=== PATIENT | female | born 1960 | race Caucasian/White ===

== ENCOUNTER → 2023-08-24 07:45 | Outpatient (BNVA) | payer OTHER, SELFPAY | PROVIDERS: Visit Provider Physician Assistant Surgical ==

== ENCOUNTER 2023-09-18 08:09 | Outpatient (AMB) | payer OTHER, SELFPAY ==
--- NOTE | 2023-09-18 11:19 | MHC.OFFVISWM ---
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 HPI Details Start time: 11.19am, End time: 12.04pm ?I spent 40 minutes speaking with the patient on the phone plus an additional 5 minutes reviewing and updating records for a total of 45 minutes HPI Comments History of Present Illness Details Previous weight loss efforts: Weight Watchers, Nutrisystem, Keto diet Wakes up: 5am, Sleeps: 8pm Breakfast: skips Lunch: 12pm (soups or eggs) Dinner: 5pm (chicken, fish, salad, pasta) Snacks: 6-7pm (ice cream) Exercise: none, has a treadmill Fluids: Coffee (1 cup/day, cappuccino with vanilla syrup), tea: occasionally, soda: none, juice: none, ETOH: rarely PFSH Medical History (Updated 09/18/23 @ 11:36 by David Shelton MD) DJD (degenerative joint disease) Hyperlipidemia Hypertension Stroke Surgical History (Updated 08/24/23 @ 08:46 by Emerald Suarez CMA) Hx of colonoscopy Hx of cholecystectomy Family History (Updated 08/24/23 @ 08:21 by Emerald Suarez CMA) Sister Skin cancer Father Skin cancer Maternal Grandmother Skin cancer Social History (Updated 08/24/23 @ 08:23 by Emerald Suarez CMA) Alcohol intake: current Alcohol intake frequency: holidays/special occasions only Alcohol type: wine and hard liquor Patient Tobacco Use Status: Former Tobacco user Quit Date: 20 yrs ago Current occupational status: employed 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 Plan for lap sleeve gastrectomy. If diaphragmatic or ventral hernias are present at time of surgery, these will be repaired laparoscopically as well. Risks and complications were discussed in detail including possible conversion to an open procedure, anastomotic leak, bleeding requiring transfusion, small bowel obstruction, , DVT and pulmonary embolism, cardiac, or pulmonary complications, as [facility] complications such as anastomotic ulcer, insufficient weight loss and vitamin deficiencies. I emphasized the importance of close follow-up, adherence to instructions and good communication. 2. Nutritional counseling. Start with 2 Isopure INFUSIONS protein (buy at [employer], [employer], [employer], [employer]) shakes (HALF scoop EACH in 8oz water) at 6am-8am and 9am-11am, 2 protein bars (Zone Perfect protein bars, buy at [employer], ?[employer], [employer], or [employer]) at 12pm-2pm and 3pm-5pm, dinner at 6pm (8 forks of protein and 8 forks of salad/vegetables). If hungry after dinner, you may have another HALF protein bar between 7pm-8pm. So you do 2 protein shakes, 2 to 2.5 protein bars and one meal per day. Meal to include lean meat (beef, fish, pork, turkey, chicken), or Frisian yogurt, or egg whites, or beans with a salad with olive oil and fruits (berries, pears, apples, kiwi). Avoid salt, breads, potatoes, rice, pasta, desserts. 3. Each shake would be drunk slowly, like coffee in a period of 2 hours. 4. Cut each bar in 4 pieces and eat each piece in 30min ?to make each bar last 2 hours. 5. I emphasized the importance of measuring accurately the food portion and measure it when serving the food in plate 6. The meal portions include 8 full-size forks of meat and 8 full-size forks of salad. You always eat the meat portion but you can replace up to 4 forks for salad/vegetables with rice, potatoes or pasta, or a fruit ?if you like. The less you do it the better weight loss will be. 7. One full-size fork is what it can be scooped on the fork without falling aside and not what can be bit with the fork. Use regular forks like those you find in a typical restaurant. 8.? Please send me weight measurements tomorrow Thursday and then weekly after that. 9. Start treadmill with an incline of 2.0 and speed of 2.0. Increase incline by 1 every 3 min to a max incline of 8.0, stay 3min at 8.0 and then return to 2.0 and repeat same steps until calorie goal is met. Goal is to burn 2000 calories per week on exercise, which means either 300 calories daily. You can also split the daily work-out to two workouts of 150 calories each, one in the morning and one in the afternoon for a total of 300 calories per day. 10. Goal is to lose at least 1.5-2lbs per week 11. Goal to lose 10% of your weight before surgery, which is about 22lbs. Ultimate weight goal: 200lbs before surgery 12. Please follow the diet plan exactly without any change. If you don't like something about the plan or you feel hungry you need to communicate with me so I can help you revise the plan. You should not change the plan yourself. Orders: Orders Complete Blood Count Auto Diff Today E66.9 - Obesity, unspecified, E78.5 - Hyperlipidemia, unspecified, I10 - Essential (primary) hypertension, I63.9 - Cerebral infarction, unspecified, Z68.38 - Body mass index [BMI] 38.0-38.9, adult Lipid Panel Today E66.9 - Obesity, unspecified, E78.5 - Hyperlipidemia, unspecified, I10 - Essential (primary) hypertension, I63.9 - Cerebral infarction, unspecified, Z68.38 - Body mass index [BMI] 38.0-38.9, adult Comprehensive Met. Panel Today E66.9 - Obesity, unspecified, E78.5 - Hyperlipidemia, unspecified, I10 - Essential (primary) hypertension, I63.9 - Cerebral infarction, unspecified, Z68.38 - Body mass index [BMI] 38.0-38.9, adult C Reactive Protein Today E66.9 - Obesity, unspecified, E78.5 - Hyperlipidemia, unspecified, I10 - Essential (primary) hypertension, I63.9 - Cerebral infarction, unspecified, Z68.38 - Body mass index [BMI] 38.0-38.9, adult TSH reflex Free T4 Today E66.9 - Obesity, unspecified, E78.5 - Hyperlipidemia, unspecified, I10 - Essential (primary) hypertension, I63.9 - Cerebral infarction, unspecified, Z68.38 - Body mass index [BMI] 38.0-38.9, adult Ferritin Today E66.9 - Obesity, unspecified, E78.5 - Hyperlipidemia, unspecified, I10 - Essential (primary) hypertension, I63.9 - Cerebral infarction, unspecified, Z68.38 - Body mass index [BMI] 38.0-38.9, adult Vitamin D 25-OH Total Today E66.9 - Obesity, unspecified, E78.5 - Hyperlipidemia, unspecified, I10 - Essential (primary) hypertension, I63.9 - Cerebral infarction, unspecified, Z68.38 - Body mass index [BMI] 38.0-38.9, adult XR chest 2V Today E66.9 - Obesity, unspecified, E78.5 - Hyperlipidemia, unspecified, I10 - Essential (primary) hypertension, I63.9 - Cerebral infarction, unspecified, Z68.38 - Body mass index [BMI] 38.0-38.9, adult Insulin Today E66.9 - Obesity, unspecified, E78.5 - Hyperlipidemia, unspecified, I10 - Essential (primary) hypertension, I63.9 - Cerebral infarction, unspecified, Z68.38 - Body mass index [BMI] 38.0-38.9, adult Hemoglobin A1c Today E66.9 - Obesity, unspecified, E78.5 - Hyperlipidemia, unspecified, I10 - Essential (primary) hypertension, I63.9 - Cerebral infarction, unspecified, Z68.38 - Body mass index [BMI] 38.0-38.9, adult H Pylori Breath Test Today E66.9 - Obesity, unspecified, E78.5 - Hyperlipidemia, unspecified, I10 - Essential (primary) hypertension, I63.9 - Cerebral infarction, unspecified, Z68.38 - Body mass index [BMI] 38.0-38.9, adult IRON PROFILE Today E66.9 - Obesity, unspecified, E78.5 - Hyperlipidemia, unspecified, I10 - Essential (primary) hypertension, I63.9 - Cerebral infarction, unspecified, Z68.38 - Body mass index [BMI] 38.0-38.9, adult Vitamin B12 and Folate Today E66.9 - Obesity, unspecified, E78.5 - Hyperlipidemia, unspecified, I10 - Essential (primary) hypertension, I63.9 - Cerebral infarction, unspecified, Z68.38 - Body mass index [BMI] 38.0-38.9, adult Zinc Today E66.9 - Obesity, unspecified, E78.5 - Hyperlipidemia, unspecified, I10 - Essential (primary) hypertension, I63.9 - Cerebral infarction, unspecified, Z68.38 - Body mass index [BMI] 38.0-38.9, adult Vitamin B1 Today E66.9 - Obesity, unspecified, E78.5 - Hyperlipidemia, unspecified, I10 - Essential (primary) hypertension, I63.9 - Cerebral infarction, unspecified, Z68.38 - Body mass index [BMI] 38.0-38.9, adult Vitamin A Today E66.9 - Obesity, unspecified, E78.5 - Hyperlipidemia, unspecified, I10 - Essential (primary) hypertension, I63.9 - Cerebral infarction, unspecified, Z68.38 - Body mass index [BMI] 38.0-38.9, adult US abdomen comp w elastography Today E66.9 - Obesity, unspecified, E78.5 - Hyperlipidemia, unspecified, I10 - Essential (primary) hypertension, I63.9 - Cerebral infarction, unspecified, Z68.38 - Body mass index [BMI] 38.0-38.9, adult ECG 12 lead EKG Today E66.9 - Obesity, unspecified, E78.5 - Hyperlipidemia, unspecified, I10 - Essential (primary) hypertension, I63.9 - Cerebral infarction, unspecified, Z68.38 - Body mass index [BMI] 38.0-38.9, adult FL upper GI w air Today E66.9 - Obesity, unspecified, E78.5 - Hyperlipidemia, unspecified, I10 - Essential (primary) hypertension, I63.9 - Cerebral infarction, unspecified, Z68.38 - Body mass index [BMI] 38.0-38.9, adult Referrals Nutrition/Dietitian Referral E66.9 - Obesity, unspecified, E78.5 - Hyperlipidemia, unspecified, I10 - Essential (primary) hypertension, I63.9 - Cerebral infarction, unspecified, Z68.38 - Body mass index [BMI] 38.0-38.9, adult Behavioral Health Referral E66.9 - Obesity, unspecified, E78.5 - Hyperlipidemia, unspecified, I10 - Essential (primary) hypertension, I63.9 - Cerebral infarction, unspecified, Z68.38 - Body mass index [BMI] 38.0-38.9, adult Telehealth Telehealth Location of provider rendering services: practice address Location of patient: address on file Patient Identification confirmed using: Name, : Yes Telehealth method: voice only Patient verbally consented to treatment: Yes Patient verbally consented to billing insurance company: Yes Patient informed of any privacy concerns related to visit: Yes Minutes spent on Phone/Video with Pt.: 45 Coding Level of Care Code Tele [facility] Pt Level 4 (42998) Diagnoses Class 2 severe obesity due to excess calories with serious comorbidity and body mass index (BMI) of 38.0 to 38.9 in adult E66.01; Z68.38 Body mass index: BMI 38.0-38.9 Obesity classification: adult class 2 (BMI 35 - 39.9) Obesity type: due to excess calories Serious obesity comorbidity presence: with serious comorbidity Time Spent (min) 45
== END 2023-09-18 12:06 | disposition home or self-care (01) ==
LOC: HO.HBS 08:09
PROVIDERS: Visit Provider Surgery
DX: E66.01 Morbid (severe) obesity due to excess calories (principal); Z68.38 Body mass index [BMI] 38.0-38.9, adult
CPT/HCPCS: 99204

== ENCOUNTER → 2023-09-18 08:09 | Outpatient (BNVA) | payer OTHER, SELFPAY | PROVIDERS: Visit Provider Surgery ==

== ENCOUNTER 2023-10-01 08:56 | Outpatient (REF) | payer OTHER, SELFPAY ==
[2023-10-01 09:20] LABS: MANUAL DIFF FLAG NO
[2023-10-01 09:39] LABS: Basophils Percent Auto 0.3 % (0-2); Eosinophils Absolute Auto 0.1 X10*3/uL (0.0-0.4); Eosinophils Percent Auto 1.9 % (0-4); Hematocrit 40.7 % (37.0-47.0); Hemoglobin 13.8 g/dl (12.0-16.0); Imm Gran Abs Auto 0.02 X10*3/uL (0.00-0.03); Imm Gran Pct Auto 0.3 % (0.0-0.4); Lymphocytes Absolute Auto 2.2 X10*3/uL (1.2-4.9); Lymphocytes Percent Auto 37.9 % (20-40); Mean Corpuscular HGB Conc 33.9 g/dl (31.0-35.0); Mean Corpuscular Hemoglobin 30.4 pg (27.0-33.0); Mean Corpuscular Volume 89.6 fL (80.0-98.0); Mean Platelet Volume 10.7 fL (9.4-12.3); Monocytes Absolute Auto 0.5 X10*3/uL (0.1-1.2); Monocytes Percent Auto 8.2 % (2-11); Neutrophils Absolute Auto 2.9 x10*3/uL (2.0-8.3); Neutrophils Percent Auto 51.4 % (45-73); Platelet Count 248 X10*3/uL (160-400); Red Blood Count 4.54 X10*6/uL (4.20-5.50); Red Cell Distribution Width 13.6 % (11.0-16.0); White Blood Count 5.7 X10*3/uL (4.8-10.8)
[2023-10-01 09:45] LABS: Estimated Average Glucose 120 mg/dL; Hemoglobin A1c % 5.8 % (<6.0)
[2023-10-01 10:14] LABS: Alanine Aminotransferase 75 U/L (0-31); Albumin Level 4.1 g/dL (3.5-5.0); Alkaline Phosphatase 42 U/L (39-117); Anion Gap 13 (12-20); Aspartate Amino Transferase 40 U/L (5-31); Bilirubin Total 0.7 mg/dL (0.0-1.0); Blood Urea Nitrogen 16 mg/dL (9-16); C Reactive Protein 0.26 mg/dL (< or = 0.50); Calcium 9.3 mg/dL (8.4-10.2); Carbon Dioxide 27 mmol/L (22-29); Chloride 109 mmol/L (96-108); Cholesterol 200 mg/dL (<200); Estimated Glomerular Filt Rate > 60; Glucose Random 97 mg/dL (60-115); HDL Cholesterol 59 mg/dL (>40); Iron 67 mcg/dL (30-160); LDL Cholesterol Calculated 117 mg/dL (<100); Percent Iron Saturation 23 % (15-50); Potassium 4.2 mmol/L (3.3-5.1); Sodium 145 mmol/L (135-145); Total Iron Binding Capacity 294 mcg/dL (228-428); Triglycerides 122 mg/dL (<150); Unsaturated Iron Binding 227 ug/dL
[2023-10-01 10:35] LABS: Ferritin 365 ng/mL (10-250); Insulin 16 uU/mL (2-29); Vitamin D 25-OH Total 30.9 ng/mL (>30)
[2023-10-01 10:48] LABS: Vitamin B12 644 pg/mL (200-900)
[2023-10-04 18:24] LABS: Zinc 69 mcg/dL (60-130)
[2023-10-06 16:44] LABS: Vitamin B1 22 nmol/L (8-30)
[2023-10-07 08:18] LABS: Vitamin A 58 mcg/dL (38-98)
== END 2023-10-01 08:57 | disposition home or self-care (01) ==
LOC: HO.LAB 08:56
PROVIDERS: PCP Physician Assistant Medical; Visit Provider Surgery
DX: E66.9 Obesity, unspecified (principal); Z68.38 Body mass index [BMI] 38.0-38.9, adult; I10 Essential (primary) hypertension; E78.5 Hyperlipidemia, unspecified; I63.9 Cerebral infarction, unspecified
CPT/HCPCS: 36415; 80053; 80061; 82306; 82607; 82728; 82746; 83036; 83525; 83540; 84425; 84443; 84590; 84630; 85025; 86140

== ENCOUNTER 2023-10-09 08:14 | Outpatient (AMB) | payer OTHER, SELFPAY ==
--- NOTE | 2023-10-09 08:14 | A.OFFVIS_ITS ---
Intake VS Expanded 10/09/23 08:25 Height 5 ft 4 in Weight 224 lb 2 oz BMI 38.5 Body Fat % 51.3 Body Fat Mass 115 Fat Free Mass 109.1 Visceral Fat Rating 19 Body Water % 33.3 Body Water Mass 74.6 Basal Metabolic Rate/Score 1,653 Intake Visit Reasons: TV Follow Up SWL - 1ST Allergies Penicillins Allergy (Mild, Verified 09/18/23 11:19) Hives HPI TV Follow Up SWL - 1ST HPI Details Start time: 8.12am, End time: 8.32am ?I spent 15 minutes speaking with the patient on the phone plus an additional 5 minutes reviewing and updating records for a total of 20 minutes HPI Comments History of Present Illness Details Is doing 2 Isopure Infusions protein shakes (1/2 scoop each in water), 2 [employer] Perfect protein bars and one meal (8 forks of protein and 8 forks of salad or vegetables) Exercise: is doing treadmill for 150-200 calories x3-4/week PFSH Medical History (Updated 09/18/23 @ 11:36 by David Shelton MD) DJD (degenerative joint disease) Hyperlipidemia Hypertension Stroke Surgical History (Updated 08/24/23 @ 08:46 by Emerald Suarez CMA) Hx of colonoscopy Hx of cholecystectomy Family History (Updated 08/24/23 @ 08:21 by Emerald Suarez CMA) Sister Skin cancer Father Skin cancer Maternal Grandmother Skin cancer Social History (Updated 08/24/23 @ 08:23 by Emerald Suarez CMA) Alcohol intake: current Alcohol intake frequency: holidays/special occasions only Alcohol type: wine and hard liquor Patient Tobacco Use Status: Former Tobacco user Quit Date: 20 yrs ago Current occupational status: employed 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 Continue same nutritional plan of 2 Isopure Infusions protein shakes (1/2 scoop each in water), 2 Zone Perfect protein bars and one meal (8 forks of protein and 8 forks of salad or vegetables). 2. If you feel hungry during or after dinner, do another half protein bar and avoid eating extra food 3. Exercise: change treadmill to incline of zero and speed of 3.0. Increase speed by 0.5 every 3 minutes to a max speed of 5.0. Stay at speed 5.0 for 3 minutes and then return to speed 3.0 and repeat cycles until 300 calories are burned. The goal is to burn 2000 calories per week on the treadmill. Try to do 100 calories the days you work 12 hour shifts and 400 calories the other days 4. Continue to send me weight measurements weekly on Saturdays Telehealth Telehealth Location of provider rendering services: practice address Location of patient: address on file Patient Identification confirmed using: Name, : Yes Telehealth method: voice only Patient verbally consented to treatment: Yes Patient verbally consented to billing insurance company: Yes Patient informed of any privacy concerns related to visit: Yes Minutes spent on Phone/Video with Pt.: 20 Coding Level of Care Code Tele Est Pt Level 3 (21148) Diagnoses Class 2 severe obesity due to excess calories with serious comorbidity and body mass index (BMI) of 38.0 to 38.9 in adult E66.01; Z68.38 Obesity type: due to excess calories Obesity classification: adult class 2 (BMI 35 - 39.9) Serious obesity comorbidity presence: with serious comorbidity Body mass index: BMI 38.0-38.9 Time Spent (min) 20
[2023-10-09 08:25] VITALS: BMI 38.5
== END 2023-10-09 08:32 | disposition home or self-care (01) ==
LOC: HO.HBS 08:15
PROVIDERS: PCP Physician Assistant Medical; Visit Provider Surgery
DX: E66.01 Morbid (severe) obesity due to excess calories (principal); Z68.38 Body mass index [BMI] 38.0-38.9, adult
CPT/HCPCS: 99213

== ENCOUNTER → 2023-10-09 08:14 | Outpatient (BNVA) | payer OTHER, SELFPAY | PROVIDERS: PCP Physician Assistant Medical; Visit Provider Surgery ==

== ENCOUNTER 2023-10-14 09:48 | Outpatient (AMB) | payer OTHER, SELFPAY ==
--- NOTE | 2023-10-14 08:33 | MHC.AMNUTRGE ---
Intake Intake Visit Reasons: VIDEO Initial Nutrition SWL Allergies Penicillins Allergy (Mild, Verified 09/18/23 11:19) Hives HPI Nutrition Presentation Reason for consult elevated BMI Diet Assmnt Details this plan is very very strict - she reports trying her best to follow surgeons nutrition plan. Is really struggling with overeating at meals . Exercise: isn't able to do the incline and the speed or timeframe given feels like it is too much too quickly. [facility] online classes: none , was never enrolled. I assisted her with this today Previous weight loss methods attempted WW, multiple fad diets Dietary counseling reduction Lifestyle Food frequency Fruit: never, Vegetables: never, Grains/pasta/breads/cereal (carbs): daily, Meats/poultry/fish (protein): daily, Meat substitutes/nuts/seeds/legumes: daily, Desserts/sweets: daily and Water: daily Diagnosis Nutrition problem #1 overweight/obesity As related to (etiology) #1 excess energy intake and physical inactivity As evidenced by (sign/symptom) #1 high BMI Monitoring/Goals Nutrition problem monitoring total energy intake, level of knowledge/skill, total PRO intake, total CHO intake and weight Outcome progress progressing Learning/Education Readiness to learn excellent Stages of change action Educational materials provided Yes Most Recent Diabetes Results: Cholesterol 200 mg/dL (<200) H 10/01/23 HDL Cholesterol 59 mg/dL (>40) 10/01/23 Triglycerides 122 mg/dL (<150) 10/01/23 Creatinine 0.73 mg/dL (0.5-1.4) 10/01/23 Blood Urea Nitrogen 16 mg/dL (9-16) 10/01/23 Sodium 145 mmol/L (135-145) 10/01/23 Potassium 4.2 mmol/L (3.3-5.1) 10/01/23 Chloride 109 mmol/L (96-108) H 10/01/23 Carbon Dioxide 27 mmol/L (22-29) 10/01/23 Calcium 9.3 mg/dL (8.4-10.2) 10/01/23 AST 40 U/L (5-31) H 10/01/23 ALT 75 U/L (0-31) H 10/01/23 Total Protein 7.0 g/dL (6.5-8.0) 02/29/24 Albumin 4.1 g/dL (3.5-5.0) 10/01/23 PFSH Medical History (Updated 09/18/23 @ 11:36 by David Shelton MD) DJD (degenerative joint disease) Hyperlipidemia Hypertension Stroke Surgical History (Updated 08/24/23 @ 08:46 by Emerald Suarez CMA) Hx of colonoscopy Hx of cholecystectomy Family History (Updated 08/24/23 @ 08:21 by Emerald Suarez CMA) Sister Skin cancer Father Skin cancer Maternal Grandmother Skin cancer Social History (Updated 08/24/23 @ 08:23 by Emerald Suarez CMA) Alcohol intake: current Alcohol intake frequency: holidays/special occasions only Alcohol type: wine and hard liquor Patient Tobacco Use Status: Former Tobacco user Quit Date: 20 yrs ago Current occupational status: employed 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 Will complete online classes. Continue f/u with surgeon Telehealth Telehealth Location of provider rendering services: practice address Location of patient: address on file Patient Identification confirmed using: Name, : Yes Telehealth method: voice only Patient verbally consented to treatment: Yes Patient verbally consented to billing insurance company: Yes Patient informed of any privacy concerns related to visit: Yes Minutes spent on Phone/Video with Pt.: 25 Coding Level of Care Code Nutr Indiv Intake (31205) Diagnoses Obesity (BMI 30-39.9) E66.9 Time Spent (min) 25
== END 2023-10-14 10:21 | disposition home or self-care (01) ==
LOC: HO.HBS 09:49
PROVIDERS: PCP Physician Assistant Medical; Visit Provider Dietitian, Registered
DX: E66.9 Obesity, unspecified (principal)

== ENCOUNTER → 2023-10-14 09:48 | Outpatient (BNVA) | payer OTHER, SELFPAY | PROVIDERS: PCP Physician Assistant Medical; Visit Provider Dietitian, Registered | DX: E66.9 Obesity, unspecified (principal); Z71.3 Dietary counseling and surveillance | CPT/HCPCS: 97802 ==

== ENCOUNTER 2023-10-16 07:35 | Outpatient (REF) | payer OTHER, SELFPAY ==
--- NOTE | ~2023-10-16 | XR_ITS ---
EXAMINATION: XR CHEST CLINICAL INFORMATION: Obesity unspecified. COMPARISON: None available. TECHNIQUE: 2 views of the chest were obtained. FINDINGS: Mild degenerative changes in the thoracic spine. The lung volumes are low. Cardiac silhouette within normal limits in size, although evaluation is limited due to low lung volumes. Bibasilar patchy opacities, left greater than right, may represent atelectasis, although an inflammatory/infectious process should also be considered. Trace blunting of the left costophrenic angle may represent trace pleural effusion versus pleural thickening. XR/XR chest 2V IMPRESSION: 1. Bibasilar patchy opacities, left greater than right, may represent atelectasis, although an inflammatory/infectious process should also be considered. 2. Trace blunting of the left costophrenic angle may represent trace pleural effusion versus pleural thickening. 3. Recommend follow up imaging in 4-6 weeks to confirm resolution and exclude underlying pathology. This study was presented today, 10/20/2023, for interpretation. PSA staff will provide results to referring provider at this time.
--- NOTE | ~2023-10-16 | US_ITS ---
EXAMINATION: US COMPLETE ABDOMEN WITH LIVER ELASTOGRAPHY CLINICAL INFORMATION: Obesity. COMPARISON: None available. TECHNIQUE: Real-time imaging of the abdominal viscera. Noninvasive ultrasound liver fibrosis assessment is performed using [employer] ElastPQ point quantification shear wave elastography (2D-SWE) with a C5-2 MHz transducer. Multiple elastography samples are obtained. FINDINGS: PANCREAS: Normal. ABDOMINAL AORTA: The proximal, middle, and distal aortic segments are normal in caliber. INFERIOR VENA CAVA: Visualized portions are normal. LIVER: Liver has normal size and contour. The parenchyma is diffusely hyperechoic. No evidence of focal lesion or intrahepatic duct dilatation. The right lobe measures 12.6 cm in length. The left lobe measures 11.1 cm in length. Portal flow is normal. Shear wave liver elastography median stiffness is 1.3 m/s (reference: normal median stiffness is 1.3 m/s or less). IQR/median stiffness to assess sampling precision is 0.05 (reference: good quality data set is IQR/median stiffness of 0.15 or less). GALLBLADDER: Surgically absent. COMMON BILE DUCT: Normal in caliber measuring 0.7 cm in diameter. RIGHT KIDNEY: Normal. No hydronephrosis. No renal calculi or focal parenchymal lesions. The kidney measures 10.6 cm in maximum dimension. LEFT KIDNEY: Normal. No hydronephrosis. No renal calculi or focal parenchymal lesions. The kidney measures 11.8 cm in maximum dimension. SPLEEN: Normal. The spleen measures 8.5 cm in maximum dimension. FREE FLUID: None. US/US abdomen comp w elastography IMPRESSION: * Liver is diffusely hyperechoic. The imaging findings are consistent with hepatic steatosis. * Shear wave liver elastography reveals a median stiffness of 1.3 m/s (reference: normal median stiffness is 1.3 m/s or less). Therefore, there is no evidence of fibrosis. REFERENCE: Society of Radiologists in Ultrasound Liver Stiffness Thresholds (2020): LIVER STIFFNESS THRESHOLDS: *Liver Stiffness equal or less than 1.3 m/s: High probability of being normal. *Liver Stiffness less than 1.7 m/s: In the absence of other known clinical signs, rules out compensated advanced chronic liver disease. *Liver Stiffness 1.7-2.1 m/s: Suggestive of compensated advanced chronic liver disease but need further test for confirmation. *Liver Stiffness over 2.1 m/s: Rules in compensated advanced chronic liver disease. *Liver Stiffness over 2.4 m/s: Suggestive of clinically significant portal hypertension. QUALITY OF DATA SET: *IQR/Median value equal or less than 0.15 implies a quality data set. *IQR/Median value over 0.15 implies a poor quality data set. OTHER CONSIDERATIONS: The stage of liver fibrosis may be overestimated in the setting of acute hepatitis, liver inflammation, elevated liver function tests, hepatic vascular congestion, obstructive cholestasis, non-fasting state, and infiltrative diseases such as amyloidosis and lymphoma. In some patients with NAFLD, the liver stiffness thresholds for compensated advanced chronic liver disease may be lower. In causes other than viral hepatitis and NAFLD, liver stiffness thresholds are not well established.
--- NOTE | 2023-10-16 08:23 | ECG_ITS ---
Test Reason : OBESITY Blood Pressure : / mmHG Vent. Rate : 071 BPM Atrial Rate : 071 BPM P-R Int : 142 ms QRS Dur : 072 ms QT Int : 402 ms P-R-T Axes : -12 -07 001 degrees QTc Int : 436 ms Normal sinus rhythm Minimal voltage criteria for LVH, may be normal variant ( R in aVL ) Borderline ECG No previous ECGs available Referred By: David Shelton Electronically Signed By:CHASIDY GOLD MD
== END 2023-10-16 07:36 | disposition home or self-care (01) ==
LOC: HO.US 07:35
PROVIDERS: PCP Physician Assistant Medical; Visit Provider Surgery
DX: I63.9 Cerebral infarction, unspecified (principal); I10 Essential (primary) hypertension; E66.9 Obesity, unspecified; Z68.38 Body mass index [BMI] 38.0-38.9, adult; E78.5 Hyperlipidemia, unspecified
CPT/HCPCS: 71046; 76700; 76981; 93005; 99211

== ENCOUNTER → 2023-10-16 08:23 | Outpatient (BNV) | payer OTHER, SELFPAY | PROVIDERS: PCP Physician Assistant Medical; Visit Provider Internal Medicine Cardiovascular Disease | DX: E66.9 Obesity, unspecified (principal); Z68.38 Body mass index [BMI] 38.0-38.9, adult | CPT/HCPCS: 93010 ==

== ENCOUNTER 2023-10-16 14:31 | Outpatient (REF) | payer OTHER, SELFPAY ==
[2023-10-18 14:29] LABS: H Pylori Breath Test Negative (Negative)
== END 2023-10-16 14:32 | disposition home or self-care (01) ==
LOC: HO.LNP 14:31
PROVIDERS: Visit Provider Surgery
DX: E66.9 Obesity, unspecified (principal); Z68.38 Body mass index [BMI] 38.0-38.9, adult; E78.5 Hyperlipidemia, unspecified
CPT/HCPCS: 83013

== ENCOUNTER 2023-11-11 12:39 | Outpatient (AMB) | payer OTHER, SELFPAY ==
--- NOTE | 2023-11-11 12:35 | A.OFFWM_ITS ---
Intake Intake Visit Reasons: (TV) BH Intake Allergies Penicillins Allergy (Mild, Verified 09/18/23 11:19) Hives PFSH Medical History (Updated 11/11/23 @ 13:00 by Tatyana Guardado) DJD (degenerative joint disease) Hyperlipidemia Hypertension Stroke Surgical History (Updated 08/24/23 @ 08:46 by Emerald Suarez CMA) Hx of colonoscopy Hx of cholecystectomy Family History (Updated 08/24/23 @ 08:21 by Emerald Suarez CMA) Sister Skin cancer Father Skin cancer Maternal Grandmother Skin cancer Social History (Updated 08/24/23 @ 08:23 by Emerald Suarez CMA) Alcohol intake: current Alcohol intake frequency: holidays/special occasions only Alcohol type: wine and hard liquor Patient Tobacco Use Status: Former Tobacco user Quit Date: 20 yrs ago Current occupational status: employed 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 She reported some history of depression and being on medication in the past due to bad relationship. No history of problems with drugs or alcohol. Pt is currently not in therapy. Presenting Concerns Referral Source provider Reason for referral weight loss surgery evaluation Precipitating Event obesity Living Situation Current Living Situation Own At risk of losing current housing? No Satisfied with current living situation? Yes Comments Patient lives with her partner and her son, daughter in law and grandchildren live upstairs. Food/Weight/Diet Expectations of change weight loss and maintenance History/Relationship with food overeating, stress eating, feeling guilt and shame in regards to food. She would snack at night after dinner while watching TV History/Relationship with weight She reported always being vuluptuos/curvy one . History/Relationship with dieting yo-yo dieter most of her life. [facility], [facility], lost 40lbs last year. Binge Eating Do you frequently eat large amounts of food in short periods of time, not feeling physically hungry? Yes Do you feel out of control when you eat a large amount of food in a short period of time? Yes Do you eat large amounts of food rapidly and typically alone? Yes Night Eating Do you wake up at least once during the night to eat? No If you wake up in the night, do you find that it is necessary to eat something in order to fall back asleep? No Do you have little or no appetite in the morning and feel very hungry in the evening, often overeating between dinner and when you go to bed? No Social History Family history and relationship Patient is , she has two adult children. She is currently in a rel. for 13 years. Sister is an alcoholic and used to live with her. 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 none Education Highest grade completed bachelors Preferred learning style Auditory, Verbal, Written, Learn by doing and Visual Currently enrolled in educational program? No Interested in further educational program? No Educational Interests/Skills operations scheduler for [employer] Employment Employment Status [employer] Wants help to find employment? No Meaningful activities loves being with her dogs, movies, crafts, painting, reading Financial Situation Describe current financial situation Comfortable Financial assistance? None Service Service? No Mental Health and Addiction Treatment Current/Past substance abuse? No Current/Past addictive behavior concerns? No Pain Screening Current pain? Yes Pain in the last few months? No Medications Is the patient compliant with medications? Yes Does the patient have Platt Guardian in place? Not applicable Does the patient use complimentary health approaches? No Trauma/Abuse History History of trauma? Yes Questionnaires PHQ-9 Over the last 2 weeks, how often have you been bothered by any of the following problems? 1. Little interest or pleasure in doing things: more than half the days 2. Feeling down, depressed, or hopeless: several days 3. Trouble falling or staying asleep, or sleeping too much: nearly every day 4. Feeling tired or having little energy: more than half the days 5. Poor appetite or overeating: more than half the days 6. Feeling bad about yourself - or that you are a failure or have let yourself or your family down: several days 7. Trouble concentrating on things, such as reading the newspaper or watching television: not at all 8. Moving or speaking so slowly that other people could have noticed. Or the opposite - being so fidgety or restless that you have been moving around a lot more than usual: not at all 9. Thoughts that you would be better off or of hurting yourself in some way: not at all Total score: 11 Depression Screening Interpretation: Positive Depression Screening Done: Yes Source: Developed by Drs. Erick Stern, Melissa Sorenson, Hernandez Osman and colleagues, with an educational jb from [employer]. Binge Eating Scale Group 1 A. I don't feel self-conscious about my wt. or body size when I'm with others. B. I feel concerned about how I look to others, but it normally does not make me fell disappointed with myself C. I do get self-conscious about my appearance and wt. which makes me feel disappointed in myself. D. I feel very self-conscious about my wt. and frequently I feel intense shame and disgust for myself. I try to avoid social contacts because of my self- consciousness. Response Group 1: D Group 2 A. I don't have any difficulty eating slowly in the proper manner. B. Although I seem to gobble down foods, I don't end up feeling stuffed because of eating to much. C. At times, I tend to eat quickly and then, I feel uncomfortably full afterwards. D. I have the habit of bolting down my food, without really chewing it. When th is happens I usually feel uncomfortably stuffed because I've eaten to much. Response Group 2: C Group 3 A. I feel capable to control my eating urges when I want to. B. I feel like I have failed to control my eating more than the average person. C. I feel utterly helpless when it comes to feeling in control of my eating urges. D. Because I feel so helpless about controlling my eating I have become very desperate about trying to get control. Response Group 3: B Group 4 A. I don't have the habit of eating when I'm bored. B. I sometimes eat when I'm bored, but often I'm able to get busy and get my mind off food. C. I have a regular habit of eating when I'm bored, but occasionally, I can use some other activity to get my mind off eating. D. I have a strong habit of eating when I'm bored. Nothing seems to help me breath the habit. Response Group 4: D Group 5 A. I'm usually physically hungry when I eat something. B. Occasionally, I eat something on impulse even though I really am not hungry. C. I have the regular habit of eating foods, that I might not really enjoy, to satisfy a hungry feeling even though physically, I don't need the food. D. Although I'm not physically hungry, I get a hungry feeling in my mouth that only seems to be satisfied when I eat a food, like sandwich, that fills my mouth. Sometimes, when I eat the food to satisfy my mouth hunger, I then spit the food out so I won't gain weight. Response Group 5: C Group 6 A. I don't feel any guilt or self-hate after I overeat. B. After I overeat, occasionally I feel guilt or self-hate. C. Almost all the time I experience strong guilt or self-hate after I overeat. Response Group 6: B Group 7 A. I don't lose total control of my eating when dieting even after periods when I overeat. B. Sometimes when I eat a forbidden food on a diet, I feel like I blew it and eat even more. C. Frequently, I have the habit of saying to myself, I've blown it now, why not go all the way, when I overeat on a diet. When that happens I eat more. D. I have a regular habit of starting a strict diets for myself but I break the diets by going on an eating binge. My life seems to be either a feast or famine. Response Group 7: D Group 8 A. I rarely eat so much food that I feel uncomfortably stuffed afterwards. B. Usually about once a month, I each such a quantity of food, I end up feeling very stuffed. C. I have regular periods during the month when I eat large amounts of food, either at mealtime or at snacks. D. I eat so much food that I regularly feel quite uncomfortable after eating and sometimes a bit nauseous. Response Group 8: C Group 9 A. My level of calorie intake does not go up very high or go down very low on a regular basis. B. Sometimes after I overeat, I will try to reduce my caloric intake to almost nothing to compensate for the excess calories I've eaten. C. I have a regular habit of overeating during the night. It seems that my routine is not to be hungry in the morning but overeat in the evening. D. In my adult years, I have had week-long periods where I practically starve myself. This follows periods when I overeat. It seems I live a life of either feast or famine. Response Group 9: C Group 10 A. I usually am able to stop eating when I want to. I know when enough is enough. B. Every so often, I experience a compulsion to eat which I can't seem to control. C. Frequently, I experience strong urges to eat which I seem unable to control, but at other times I can control my eating urges. D. I feel incapable of controlling urges to eat. I have a fear of not being able to stop eating voluntarily. Response Group 10: C Group 11 A. I don't have any problem stopping eating when I feel full. B. I usually can stop eating when I feel full but occasionally overeat leaving me feeling uncomfortably stuffed. C. I have a problem stopping eating once I start and usually I feel uncomfortably stuffed after I eat a meal. D. Because I have a problem not being able to stop eating when I want, I sometimes have to induce vomiting to relieve my stuffed feeling. Response Group 11: C Group 12 A. I seem to eat just as much when I'm with others, Family social gatherings as when I'm by myself. B. Sometimes, when I'm with other persons, I don't eat as much as I want to eat because I'm self-conscious about my eating. C. Frequently, I eat only a small amount of food when others are present, because I'm very embarrassed about my eating. D. I feel so ashamed about overeating that I pick times to overeat when I know no one will see me. I feel like a closet eater. Response Group 12: D Group 13 A. I eat three meals a day with only an occasional between meal snack. B. I eat 3 meals a day, but I also normally snack between meals. C. When I am snacking heavily, I get in the habit of skipping regular meals. D. There are regular periods when I seem to be continually eating, with no planned meals. Response Group 13: C Group 14 A. I don't think much about trying to control unwanted eating urges. B. At least some of the time, I feel my thoughts are pre-occupied with trying to control my eating urges. C. I feel that frequently I spend much time thinking about how much I ate or about trying not to eat anymore. D. It seems to me that most of my waking hours are pre-occupied by thoughts about eating or not eating. I feel like I'm constantly struggling not to eat. Response Group 14: C Group 15 A. I don't think about food a great deal. B. I have strong craving for food but they last only for brief periods of time. C. I have days when I can't seem to think about anything else but food. D. Most of my days seem to be pre-occupied with thoughts about food. I feel like I live to eat. Response Group 15: C Group 16 A. I usually know whether or not I'm physically hungry. I take the right portion of food to satisfy me. B. Occasionally, I feel uncertain about knowing whether or not I'm physically hungry. A these times it's hard to know how much food I should take to satisfy me. C. Even though I might know how many calories I should eat, I don't have any idea what is a normal amount of food for me. Response Group 16: B Binge Eating Score: 33 Score less than 17 Minimal Risk Score between 18-26 Moderate Risk Score between 27-46 High Risk Assessment & Plan Assessment & Plan (1) Adjustment disorder, unspecified: Code(s): F43.20 - Adjustment disorder, unspecified (2) Obesity: Code(s): E66.9 - Obesity, unspecified Qualifiers: Obesity type: due to excess calories Obesity classification: adult class 2 (BMI 35 - 39.9) Serious obesity comorbidity presence: with serious comorbidity Body mass index: BMI 38.0-38.9 Qualified Code(s): E66.01 - Morbid (severe) obesity due to excess calories; Z68.38 - Body mass index [BMI] 38.0- 38.9, adult Plan Patient is struggling a bit with consistency on the meal plan. She finds it very restrictive.Some depression and binge eating symptoms. she will be seen again. Telehealth Telehealth Location of provider rendering services: other Location of patient: address on file Patient Identification confirmed using: Name, : Yes Telehealth method: voice only Patient verbally consented to treatment: Yes Patient verbally consented to billing insurance company: Yes Patient informed of any privacy concerns related to visit: Yes Minutes spent on Phone/Video with Pt.: 45 Coding Level of Care Code Tele Psy Diag Eval ([id number]) Diagnoses Adjustment disorder, unspecified F43.20 Class 2 severe obesity due to excess calories with serious comorbidity and body mass index (BMI) of 38.0 to 38.9 in adult E66.01; Z68.38 Obesity type: due to excess calories Obesity classification: adult class 2 (BMI 35 - 39.9) Serious obesity comorbidity presence: with serious comorbidity Body mass index: BMI 38.0-38.9 Time Spent (min) 45
== END 2023-11-11 13:16 | disposition home or self-care (01) ==
LOC: HO.HBST 12:39
PROVIDERS: PCP Physician Assistant Medical; Visit Provider Counselor Mental Health
DX: F43.20 Adjustment disorder, unspecified (principal); E66.01 Morbid (severe) obesity due to excess calories; Z68.38 Body mass index [BMI] 38.0-38.9, adult
CPT/HCPCS: 90791

== ENCOUNTER → 2023-11-11 12:39 | Outpatient (BNVA) | payer OTHER, SELFPAY | PROVIDERS: PCP Physician Assistant Medical; Visit Provider Counselor Mental Health ==

== ENCOUNTER 2023-11-13 08:06 | Outpatient (AMB) | payer OTHER, SELFPAY ==
--- NOTE | 2023-11-13 08:19 | A.OFFVIS_ITS ---
Intake VS Expanded 11/13/23 08:55 Height 5 ft 4 in Weight 213 lb 9 oz BMI 36.7 Body Fat % 48.6 Body Fat Mass 103.9 Fat Free Mass 109.9 Visceral Fat Rating 18 Body Water % 35.2 Body Water Mass 75.2 Basal Metabolic Rate/Score 1,605 Intake Visit Reasons: TV Follow Up SWL Allergies Penicillins Allergy (Mild, Verified 09/18/23 11:19) Hives HPI TV Follow Up SWL HPI Details Start time: 8.01am, End time: 8.31am ?I spent 25 minutes speaking with the patient on the phone plus an additional 5 minutes reviewing and updating records for a total of 30 minutes HPI Comments History of Present Illness Details Overall weight loss: 7.9lbs, or 3.56% TBWL Is doing 2 Isopure Infusions (1/2 scoop in water), 2 Zone Perfect protein bars and a meal (8 forks of meat and 8 forks of salad or vegetables) Exercises: is doing treadmill x4/week for 300 calories (incline zero, speed: 3mph) PFSH Medical History (Updated 11/13/23 @ 08:18 by David Shelton MD) DJD (degenerative joint disease) Hyperlipidemia Hypertension Stroke Surgical History (Updated 08/24/23 @ 08:46 by Emerald Suarez CMA) Hx of colonoscopy Hx of cholecystectomy Family History (Updated 08/24/23 @ 08:21 by Emerald Suarez CMA) Sister Skin cancer Father Skin cancer Maternal Grandmother Skin cancer Social History (Updated 08/24/23 @ 08:23 by Emerald Suarez CMA) Alcohol intake: current Alcohol intake frequency: holidays/special occasions only Alcohol type: wine and hard liquor Patient Tobacco Use Status: Former Tobacco user Quit Date: 20 yrs ago Current occupational status: employed 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 Exercises: continue treadmill. Goal is to burn 2000 calories per week on exercise, which means either 300 calories daily, or 400 calories 5 days per wee k, or 500 calories 4 days per week, or 650 calories 3 days per week. 3. Continue to send me weight measurements weekly on Saturdays Orders: Orders XR chest 2V Today R93.89 - Abnormal findings on diagnostic imaging of other specified body structures Telehealth Telehealth Location of provider rendering services: practice address Location of patient: address on file Patient Identification confirmed using: Name, : Yes Telehealth method: voice only Patient verbally consented to treatment: Yes Patient verbally consented to billing insurance company: Yes Patient informed of any privacy concerns related to visit: Yes Minutes spent on Phone/Video with Pt.: 30 Coding Level of Care Code Tele Est Pt Level 4 ([id number]) Diagnoses Class 2 severe obesity due to excess calories with serious comorbidity and body mass index (BMI) of 38.0 to 38.9 in adult E66.01; Z68.38 Obesity type: due to excess calories Obesity classification: adult class 2 (BMI 35 - 39.9) Serious obesity comorbidity presence: with serious comorbidity Body mass index: BMI 38.0-38.9 Time Spent (min) 30
[2023-11-13 08:55] VITALS: BMI 36.7
== END 2023-11-13 09:01 | disposition home or self-care (01) ==
LOC: HO.HBS 08:06
PROVIDERS: PCP Physician Assistant Medical; Visit Provider Surgery
DX: E66.01 Morbid (severe) obesity due to excess calories (principal); Z68.38 Body mass index [BMI] 38.0-38.9, adult
CPT/HCPCS: 99214

== ENCOUNTER → 2023-11-13 08:06 | Outpatient (BNVA) | payer OTHER, SELFPAY | PROVIDERS: PCP Physician Assistant Medical; Visit Provider Surgery | DX: E66.01 Morbid (severe) obesity due to excess calories (principal); Z68.38 Body mass index [BMI] 38.0-38.9, adult ==